=== PATIENT | female | born 1985 | race African-American/Black ===

== ENCOUNTER 2021-06-02 00:34 | Inpatient (IN) | payer OTHER ==
[~2021-06-02] VITALS: Ht 157.5 cm; Wt 79.8 kg
[2021-06-02] VITALS (7 sets, daily range): BP systolic 135–153; BP diastolic 78–96
--- NOTE | ~2021-06-02 | O ---
[facility] [place] [address] OPERATIVE REPORT Name: DILLON VALENCIA Room #: 434-P ADM IN M.R.#: [id number] Admission: 06/02/21 Attend Phys: Rl Hairston, Discharge: Date of : 83 Report #: [id number] THIS REPORT FOR: cc: FAM - No family physician/PCP FAM - No family physician/PCP lR Hairston MD ~ DATE OF SERVICE: 06/02/2021 PREOPERATIVE DIAGNOSIS: Cholecystitis with abnormally dilated common bile duct on ultrasound. POSTOPERATIVE DIAGNOSIS: Cholecystitis with abnormally dilated common bile duct on ultrasound. OPERATION: Laparoscopic cholecystectomy with intraoperative cholangiogram. INTRAOPERATIVE FINDINGS: There was no evidence of common bile duct stones. The common bile duct was somewhat dilated to about 1 cm. SURGEON: Rl Hairston MD ANESTHESIA: General. ESTIMATED BLOOD LOSS: Minimal. SPECIMENS: Gallbladder. DESCRIPTION OF PROCEDURE: After informed consent was obtained, the patient was brought to the operating room and placed supine. SCDs were placed and working, preoperative antibiotics were administered and general anesthesia was induced. The abdomen was prepped and draped in the usual sterile fashion. A 10 mm incision was made above the umbilicus. Fascia was incised and a trocar was placed. Pneumoperitoneum was established. Three right upper quadrant 5 mm ports were placed. Gallbladder was grasped at the fundus and retracted cephalad. Infundibulum was grasped and retracted laterally. I dissected out the cystic artery and the cystic duct. The cystic duct was clipped. A ductotomy was made. Cholangiogram catheter was inserted. Cholangiogram was performed. This demonstrated a short cystic duct, common bile duct, common hepatic duct, bifurcation of the hepatics, smooth flow into the duodenum. There was no evidence of common bile duct stones, although the common bile duct was somewhat dilated at approximately 1 cm. The cholangiogram catheter was removed. The cystic duct was clipped and ligated leaving a clip and a PDS Endoloop on the remaining duct. Gallbladder was then taken off the liver bed with electrocautery after the cystic artery was clipped and ligated. Gallbladder was then placed into an Endopouch and removed. [facility] [address] [place] [address] OPERATIVE REPORT Name: DILLON VALENCIA Room #: 434-P [facility] IN ..#: [id number] Admission: 06/02/21 Attend Phys: Rl Hairston, Discharge: Date of : 83 Report #: [id number] gallbladder fossa was suctioned. FloSeal was instilled into the gallbladder fossa to help with hemostasis. There was excellent hemostasis after this. The ports were removed under direct vision. The fascia was closed with a [id number] 0 Vicryl. Skin was closed with 4-0 Monocryl. Incisions were dressed with Steri-Strips. COMPLICATIONS: None. DISPOSITION: The patient was taken to recovery in a satisfactory condition. By: 1414 1502 Rl Hairston MD /kati
[2021-06-02 01:17] LABS: ANION GAP 14 mmol/L (7-16); BUN 7 mg/dL (7-18); CALCIUM 9.5 mg/dL (8.5-10.1); CHLORIDE 100 mmol/L (98-107); CO2 24 mmol/L (21-32); CREATININE 0.8 mg/dL (0.6-1.0); GLUCOSE 122 mg/dL (74-106); SODIUM 138 mmol/L (136-145)
[2021-06-02 01:27] LABS: ALBUMIN 3.8 g/dL (3.4-5.0); DIRECT BILIRUBIN < 0.1 mg/dL (<0.1-0.2); LIPASE 96 U/L (73-393); SGOT 25 U/L (15-37); SGPT 29 U/L (14-59); TOTAL BILIRUBIN 0.2 mg/dL (0.2-1.0); TOTAL PROTEIN 7.7 g/dL (6.4-8.2)
[2021-06-02 01:42] LABS: POTASSIUM 4.6 mmol/L (3.5-5.1)
[2021-06-02 01:46] LABS: ABSOLUTE NEUTROPHILS 7.9 thou/uL (1.4-8.2); BASOPHILS 0.3 % (0.0-2.0); EOSINOPHILS 0.1 % (0.0-3.0); HEMATOCRIT 40.7 % (37.0-47.0); HEMOGLOBIN 13.3 gm/dL (12.0-15.0); LYMPHOCYTES 14.5 % (24.0-44.0); MCH 28.1 pg (26.0-34.0); MCHC 32.6 g/dL (28.0-37.0); MCV 86.3 fL (80.0-100.0); PLATELET COUNT 341 thou/uL (150-400); POLYS 81.1 % (36.0-66.0); RBC 4.72 mil/uL (4.20-5.00); RDW 14.2 % (10.5-14.5); WBC 9.7 thou/uL (4.0-11.0)
[2021-06-02 02:08] LABS: URINE BILIRUBIN NEGATIVE (Negative); URINE BLOOD NEGATIVE (Negative); URINE CLARITY CLEAR; URINE COLOR YELLOW; URINE GLUCOSE-RANDOM* NEGATIVE (Negative); URINE KETONES 3+ (Negative); URINE LEUKOCYTES-REFLEX NEGATIVE (Negative); URINE NITRITE-REFLEX NEGATIVE (Negative); URINE PROTEIN (DIPSTICK) TRACE (Negative); URINE SPECIFIC GRAVITY 1.025 (1.005-1.035); URINE UROBILINOGEN 0.2 E.U./dl (0.2-1.0)
[2021-06-02 02:14] LABS: URINE REDUCING SUBSTANCE 0 %
--- NOTE | 2021-06-02 05:51 | NUR ---
RECEIVED CARE OF THIS PATIENT AT 0415 FROM ED VIA CART ACCOMPANIED BY ED PERSONEL. PATIENT ALERT AND ORIENTED X4. C/O SEVERE PAIN IN ABD. UNABLE TO GIVE MED D/T JUST RECEIVING PAIN MED IN ED. GAVE PATIENT A WARM BLANKET TO PUT ON ABD AND SHE STATED IT HELPED. PATIENT UP AD NANNETTE BUT ADVISED TO ASK FOR HELP D/T HER ABD HURTING AND THE IV POLE. REMAINS NPO FOR PROCEDURES IN AM.
--- NOTE | 2021-06-02 09:49 | NUR ---
Assumed care of pt at 0700. Pt a&ox4. C/o gen abd pain not controlled with the morphine and nausea. Provider notified. New orders noted. IVF infusing. Call light within reach. Will continue to monitor.
--- NOTE | 2021-06-03 03:53 | NUR ---
patient aox4 makes needs known. patient had lap choli, patient had four lab sites with steri strip, steri strips are c/d/i. patient was able to ambulate in the room and in the unit. patient has not been passing gas, bowel sound present. patient is up at yazan. pain controlled this shift. patient in bed asleep at this time breathing regular and unlaboured.
[2021-06-03 07:16] VITALS: BP 107/67
--- NOTE | 2021-06-03 16:25 | NUR ---
PT ASSESSED AT START OF SHIFT. SLEPT WELL. PASSING FLATUS. EATING W/O NAUSEA. ABD LAP SITES INTACT W/ ANSLEY AND STERI-STRIPS. DR. PEDRO IN TO SEE PT AND STATED HE WOULD PUT IN DISCHAGE ORDERS FOR AROUND 1700. AWAITING ORDERS IN COMPUTER. PT AMBULATING THE HALLS AND DOING WELL.
[2021-06-03] MEDS ORDERED: NORCO5 PO (17:12)
[2021-06-03 17:42] VITALS: BP 107/67
--- NOTE | 2021-06-04 07:35 | EKG ---
[address] [place] [address] ELECTROCARDIOGRAM REPORT Name: ELISEO VALENCIAALEJANDRA SHUKLA Room #: 434-P [facility] IN ..#: [id number] Admission: 06/02/21 Attend Phys: Rl Hairston, Discharge: 06/03/21 Date of : 83 Report #: [id number] [facility] ED Test Date: 2021-06-02 Test Time: 01:26:55 Pat Name: DILLON VALENCIA Department: Room: 434 Gender: F Control Equipment Electrician: : 1985 Requested By: Sterling Salcedo Order Number: [id number] MD: Gamaliel Samuel Measurements Intervals [place] Rate: 77 P: 51 UT: 161 QRS: 0 QRSD: 109 T: 13 QT: 397 QTc: 450 Interpretive Statements Sinus rhythm Probable left atrial enlargement RSR' in V1 or V2, right VCD or RVH No previous ECG available for comparison Electronically Signed On 06-04-2021 7:35:37 [employer] by Gamaliel Samuel [email or web address] <ELECTRONICALLY SIGNED> By: Gamaliel Samuel MD, [facility] 06/04/21 0735 0126 [id number] Gamaliel Samuel MD, FACC /EPI
== END 2021-06-03 18:30 | disposition home or self-care (01) | DRG 419 ==
LOC: ER 00:34 → EROBS 03:45 → 4S 04:08
PROVIDERS: Student in an Organized Health Care Education/Training Program; ADMIT Surgery; ATTEND Surgery
PROC: 0FT44ZZ Resection of Gallbladder, Percutaneous Endoscopic Approach (ICD-10-PCS; principal; 2021-06-02)
PROC: BF121ZZ Fluoroscopy of Gallbladder using Low Osmolar Contrast (ICD-10-PCS; principal; 2021-06-02)
DX: K80.10 Calculus of gallbladder with chronic cholecystitis without obstruction (principal); Z20.822 Contact with and (suspected) exposure to COVID-19
CPT/HCPCS: 10195; 50411; 50555; 50900; 51297; 51489; 51751; 52245; 52265; 52266; 53307; 53312; 53314; 55317; 56462; 56525; 56526; 58574